=== PATIENT | male | born 1985 ===

== ENCOUNTER 2017-12-04 14:51 | Emergency (ER) | payer SELFPAY ==
[2017-12-04 15:11] VITALS: RESP 16; TEMP 98
--- NOTE | 2017-12-04 15:26 | C.PDOC ---
History Of Present Illness 32 year old male presents to ED complaining of pain to his right lucero. Patient reports the pain started yesterday, but was tolerable and was ambulate. He took 800 mg of Motrin last night and went to sleep. Patient woke up this morning with worsening pain and took another 800 mg of Motrin. Patient states he is unable to flex and extend his right foot, and cannot bear weight on it. Patient also reports he traveled by plane 15 days ago. Denies trauma or injury. Time Seen by Provider: 12/04/17 15:06 Chief Complaint (Nursing): Lower Extremity Problem/Injury History Per: Patient History/Exam Limitations: no limitations Onset/Duration Of Symptoms: Days Current Symptoms Are (Timing): Still Present Recent travel outside of the [place]: Yes (15 days ago by plane.) - Ankle/Foot Currently Unable To: Bear Weight (right ) Past Medical History Reviewed: Historical Data, Nursing Documentation, Vital Signs Vital Signs: Last Vital Signs Temp 98 F 12/04/17 15:07 Pulse 91 H 12/04/17 15:07 Resp 16 12/04/17 15:07 BP 114/74 12/04/17 15:07 Pulse Ox 99 12/04/17 15:38 Surgical History: No Surg Hx Family History: States: No Known Family Hx - Social History Hx Alcohol Use: No Hx Substance Use: No - Immunization History Hx Tetanus Toxoid Vaccination: No Hx Influenza Vaccination: No Hx Pneumococcal Vaccination: No Review Of Systems Except As Marked, All Systems Reviewed And Found Negative. Constitutional: Negative for: Other (trauma, injury) Musculoskeletal: Positive for: Leg Pain (right lucero), Foot Pain (right dorsum of foot.) Neurological: Negative for: Weakness, Numbness Physical Exam - Physical Exam Appears: Non-toxic Skin: Warm, Dry Head: Atraumatic, Normacephalic Eye(s): bilateral: Normal Inspection Oral Mucosa: Moist Neck: Supple Chest: Symmetrical Cardiovascular: Rhythm Regular, No Murmur Respiratory: Normal Breath Sounds, No Rales, No Rhonchi, No Wheezing Gastrointestinal/Abdominal: Soft, No Tenderness Extremity: Tenderness (right lucero and dorsum right foot.), Swelling (dorsum of right foot) Extremity: Right: Unable To Bear Weight Neurological/Psych: Oriented x3, Normal Speech ED Course And Treatment O2 Sat by Pulse Oximetry: 99 (RA) Pulse Ox Interpretation: Normal Medical Decision Making Medical Decision Making: Impression: Right lucero/ankle pain Plan: * Ultram 50 mg PO * Vasclab Disposition - Disposition Referrals: [facility] [Outside] Disposition: HOME/ ROUTINE Disposition Time: 16:25 Condition: STABLE Prescriptions: Ibuprofen [Motrin] 600 mg PO TID #15 tab Instructions: Lucero Splints (DC) Forms: Gen Discharge Inst [place]ian, [facility] (B[place]ian), Work Excuse - POA Present On Arrival: None - Clinical Impression Clinical Impression: Lucero splints - Scribe Statement The provider has reviewed the documentation as recorded by the Robinson Varelaed Provider Attestation: All medical record entries made by the Robinson were at my direction and personally dictated by me. I have reviewed the chart and agree that the record accurately reflects my personal performance of the history, physical exam, medical decision making, and the department course for this patient. I have also personally directed, reviewed, and agree with the discharge instructions and disposition.
--- NOTE | 2017-12-04 16:18 | RAD ---
Date of service: 12/04/2017 PROCEDURE: Radiographs of the right tibia and fibula. HISTORY: pain, no trauma COMPARISON: None available TECHNIQUE: Frontal and lateral views obtained. FINDINGS: BONES: No fracture or destructive lesion. JOINT SPACES: Unremarkable. OTHER FINDINGS: None. IMPRESSION: Unremarkable radiographs of the right tibia and fibula.
[2017-12-04 16:38] VITALS: BP 105/79; PULSE 72; O2SAT 98
--- NOTE | 2017-12-05 10:34 | VASCLAB ---
Date of service: 12/04/2017 PROCEDURE: Right Lower Extremity Venous Duplex Exam. HISTORY: Pain in limb PRIORS: None. TECHNIQUE: Right common femoral, femoral, popliteal and posterior tibial, peroneal and great saphenous veins were evaluated. Flow was assessed with color Doppler, compressibility, assessment of phasic flow and augmentation response. Report prepared by JONATHAN Timmons, RVT FINDINGS: RIGHT: 1. Common Femoral Vein: 1.1. Compressibility - Fully compressible: Thrombus - None: Flow - Phasic: Augmentation -Normal: Reflux - None. 2. Femoral Vein: 2.1. Compressibility - Fully compressible: Thrombus - None: Flow - Phasic: Augmentation -Normal: Reflux - None. 3. Popliteal Vein: 3.1. Compressibility - Fully compressible: Thrombus - None: Flow - Phasic: Augmentation -Normal: Reflux - None. 4. Posterior Tibial Vein: 4.1. Compressibility - Fully compressible: Thrombus - None: Flow - Phasic: Augmentation -Normal: Reflux - None. 5. Peroneal Vein: 5.1. Compressibility - Fully compressible: Thrombus - None: Flow - Phasic: Augmentation -Normal: Reflux - None. 6. Great Saphenous Vein: 6.1. Compressibility - Fully compressible: Thrombus -None: Flow - Phasic: Augmentation - Normal: Reflux - None. OTHER FINDINGS: IMPRESSION: No evidence of deep or superficial vein thrombosis of the right lower extremity with excellent venous flow. Normal valve function noted of the right side. Normal venous flow noted in the left common femoral vein.
== END 2017-12-04 16:37 | disposition home or self-care (01) ==
LOC: C.ER 14:51
DX: S86.891A Other injury of other muscle(s) and tendon(s) at lower leg level, right leg, initial encounter (principal); X58.XXXA Exposure to other specified factors, initial encounter